=== PATIENT | male | born 1965 | race Caucasian/White ===

== ENCOUNTER → 2016-11-16 | Outpatient (CLI) | payer OTHER ==
--- NOTE | 2016-11-16 07:34 | US ---
EXAMINATION TYPE: US carotid duplex BILAT DATE OF EXAM: 11/16/2016 COMPARISON: NONE CLINICAL HISTORY: I65.29 ARTERY OCCLUSION. bruit EXAM MEASUREMENTS: RIGHT: Peak Systolic Velocity (PSV) cm/sec ----- Right CCA: 82.3 ----- Right ICA: 89.7 ----- Right ECA: 74.3 ICA/CCA ratio: 1.1 RIGHT: End Diastole cm/sec ----- Right CCA: 24.1 ----- Right ICA: 24.8 ----- Right ECA: 14.9 LEFT: Peak Systolic Velocity (PSV) cm/sec ----- Left CCA: 80.9 ----- Left ICA: 101.7 ----- Left ECA: 65.1 ICA/CCA ratio: 1.3 LEFT: End Diastole cm/sec ----- Left CCA: 23.7 ----- Left ICA: 31.8 ----- Left ECA: 13.6 VERTEBRALS (direction of flow): Right Vertebral: Antegrade Left Vertebral: Antegrade 1. Mild wall thickening bilaterally. 2. No elevated velocities. 3. No significant stenosis. 4. Heterogeneous hypervascular thyroid tissue ?chronic thyroiditis with multiple cystic nodules. IMPRESSION: 1. Mild intimal thickening without significant flow-limiting stenosis. 2. Heterogenous appearing thyroid. Criteria for Assigning % of Stenosis / Diameter reduction (Estimation based on the indirect measurements of the internal carotid artery velocities (ICA PSV). 1. Normal (no stenosis)=ICA PSV < 125 cm/s: ratio < 2.0: ICA EDV<40 cm/s. 2. Less than 50% stenosis=ICA PSV < 125 cm/s: ratio < 2.0: ICA EDV<40 cm/s. 3. 50 to 69% stenosis=ICA PSV of 125 to 230 cm/s: ration 2.0 ? 4.0: ICA EDV 40-100 cm/s. 4. Greater than 70% stenosis to near occlusion= ICA PSV > 230 cm/s: ratio > 4.0: ICA EDV > 100 cm/s. 5. Near occlusion= ICA PSV velocities may be low or undetectable: variable ratio and ICA EDV. 6. Total occlusion=unable to detect flow.
== END ==
LOC: RADUSWWP 06:54
PROVIDERS: ATTEND Family Medicine
DX: I65.29 Occlusion and stenosis of unspecified carotid artery (principal)
CPT/HCPCS: 93880

== ENCOUNTER → 2016-11-27 | Outpatient (CLI) | payer OTHER ==
--- NOTE | 2016-11-28 07:23 | US ---
EXAMINATION TYPE: US thyroid st tissue head/neck DATE OF EXAM: 11/27/2016 COMPARISON: NONE CLINICAL HISTORY: Nontoxic single thyroid nodule E04.1. Patient states no problems GLAND SIZE: Right Lobe: 5.7 x 2.3 x 2.0 cm Overall Parenchyma: heterogenous Left Lobe: 5.4 x 1.6 x 1.8 cm Overall Parenchyma: heterogeneous Isthmus Thickness: 0.6 cm NODULES RIGHT: # of nodules measured on right: 3 1. 1.3 X 0.4 x 1.1 cm cystic nodule at the lower pole with well-defined margins; . This nodule is wider than tall and shows no intranodular vascularity. Prior size: No previous 2. 0.9 X 0.6 x 0.8 cm solid nodule at the pole with well-defined margins; . This nodule is wider th an tall and shows no intranodular vascularity. Prior size: No previous 3. 0.7 X 0.5 x 0.7 cm isoechoic mixed nodule at the lower pole with well-defined margins; . This no dule is wider than tall and shows no intranodular vascularity. Prior size: No previous LEFT: # of nodules measured on left: 0 Multiple subcentimeter cystic areas visualized ISTHMUS: # of nodules measured in the isthmus: 0 Multiple subcentimeter cystic areas visualized Bilateral neck scanned, no evidence of lymphadenopathy. IMPRESSION: 1. Nonspecific nodularity identified throughout both thyroid lobes. 2. Thyroid glandular enlargement.
== END | disposition home or self-care (01) ==
LOC: RADUSWWP 16:06
PROVIDERS: ATTEND Family Medicine
DX: E04.2 Nontoxic multinodular goiter (principal)
CPT/HCPCS: 76536

== ENCOUNTER → 2018-01-20 | Outpatient (CLI) | payer OTHER ==
--- NOTE | 2018-01-20 17:06 | US ---
EXAMINATION TYPE: US thyroid st tissue head/neck DATE OF EXAM: 01/20/2018 COMPARISON: 11/27/2016 CLINICAL HISTORY: E04.2 MULTINODULAR GOITER. Goiter, follow up thyroid nodules GLAND SIZE: Right Lobe: 5.5 x 2.2 x 2.3 cm Overall Parenchyma: heterogenous Left Lobe: 5.0 x 1.8 x 2.3 cm Overall Parenchyma: heterogeneous Isthmus Thickness: 0.6 cm NODULES RIGHT: # of nodules measured on right: 3 1. 1.2 X 0.5 x 1.0 cm cystic nodule at the lower pole with well-defined margins; . This nodule is wider than tall and shows no intranodular vascularity. Prior size: 1.3 x 0.4 x 1.1 cm 2. 0.9 X 0.8 x 0.7 cm cystic nodule at the mid pole with well-defined margins; . This nodule is wid er than tall and shows no intranodular vascularity. Prior size: 0.9 x 0.6 x 0.8 cm 3. 0.8 X 0.5 x 0.7 cm mixed nodule at the lower pole with well-defined margins; . This nodule is wi darnell than tall and shows intranodular vascularity. Prior size: 0.7 x 0.5 x 0.7 cm LEFT: # of nodules measured on left: 0 ISTHMUS: # of nodules measured in the isthmus: 0 Bilateral neck scanned, no evidence of lymphadenopathy. Multiple subcentimeter cystic areas visualized IMPRESSION: There are numerous cysts in both thyroid lobes. No dominant thyroid mass. No adverse change compared to old exam.
[2018-01-20 17:45] LABS: T4, Free (Free Thyroxine) 1.09 ng/dL (0.78-2.19)
== END | disposition home or self-care (01) ==
LOC: RADUSWWP 16:19
PROVIDERS: ATTEND Internal Medicine Endocrinology, Diabetes & Metabolism
DX: E04.2 Nontoxic multinodular goiter (principal)
CPT/HCPCS: 76536; 84439; 84443

== ENCOUNTER → 2018-05-26 | Outpatient (CLI) | payer OTHER ==
--- NOTE | 2018-05-26 10:08 | US ---
EXAMINATION TYPE: US abdomen complete DATE OF EXAM: 05/26/2018 COMPARISON: NONE CLINICAL HISTORY: R11.2 nausea with vomiting, unspecified. Vomiting and diarrhea with greasy foods EXAM MEASUREMENTS: Liver Length: 15.2 cm Gallbladder Wall: 0.3 cm CBD: 0.4 cm Spleen: 10.7 cm Right Kidney: 10.9 x 4.8 x 4.8 cm Left Kidney: 10.6 x 6.1 x 4.7 cm Pancreas: Tail obscured by overlying bowel gas Liver: appears wnl Gallbladder: no evidence of stones Evidence for sonographic Kong's sign: no CBD: wnl Spleen: wnl Right Kidney: no evidence of hydronephrosis or mass Left Kidney: no evidence of hydronephrosis or mass Upper IVC: wnl Abd Aorta: wnl The visualized liver is homogenous. The intrahepatic portion of the IVC and proximal abdominal aorta are within normal limits. There is no evidence of cholelithiasis. Common bile duct is unremarkable . The visualized portions of the pancreas are homogenous. The spleen is unremarkable. Kidneys are symmetric and free of hydronephrosis. No renal lesions are seen. IMPRESSION: No acute finding identified to account for patient's symptoms.
== END | disposition home or self-care (01) ==
LOC: RADUSWWP 07:36
PROVIDERS: ATTEND Family Medicine
DX: R11.2 Nausea with vomiting, unspecified (principal)
CPT/HCPCS: 76700

== ENCOUNTER 2018-06-16 08:25 | Day surgery (SDC) | payer OTHER ==
[2018-06-13 08:16] VITALS: BMI 24.3
[~2018-06-16 08:25] MED LIST: LACTATED RINGERS 1,000 ML IV SCH
[2018-06-16 09:31] VITALS: TEMP 98.2
[2018-06-16] MEDS ORDERED: PROPOFOL 10 MG/ML 20 ML VIAL IV ONE (10:02)
[2018-06-16] MEDS ORDERED: LIDOCAINE 1% INJ 10MG/ML (20 ML MDV) ONE (10:02)
[2018-06-16] MEDS ORDERED: fentaNYL (PF) 50 MCG/ML 2 ML AMP ONE (10:02)
--- NOTE | 2018-06-16 10:44 | P.PCN ---
Date of Procedure: 06/16/18 Procedure(s) Performed: Procedure: Colonoscopy and biopsy and polypectomy. Preoperative diagnosis: Diarrhea. Postoperative diagnosis: 1. Sigmoid diverticulosis with no evidence of acute diverticulitis or strictures. 2. Colon and terminal ileum show no evidence of inflammatory bowel disease, biopsies obtained from the terminal ileum and right colon. 3. Diminutive polyp around the hepatic flexure biopsied. 4. Multiple other small polyps snared in the transverse colon, sigmoid and rectum. 5. No large polyps or cancer. Preparation: HalfLytely prep. Sedation: Was provided by anesthesia. Brief clinical history: The patient is a 53-year-old male who is scheduled for this evaluation because of diarrhea, mostly after he eats greasy foods, getting worse over the last 3 years or so. His brother had ulcerative colitis. There is no family history of colon cancer. This would be his first colonoscopy. Procedure: With the patient on his left lateral decubitus position and after informed consent and adequate sedation, the perianal area was inspected and it did not show any fissures or fistulas. There were no masses felt on digital rectal examination. The Olympus CFH 190L video colonoscope was then inserted in the rectum in the usual fashion and advanced to the cecum. I intubated the ileocecal valve and examined the terminal ileum. There were several diverticular orifices seen scattered in the sigmoid with no evidence of acute diverticulitis or strictures. The mucosa appeared healthy with no evidence of inflammatory bowel disease. I obtained biopsies from the terminal ileum and right colon. There was a diminutive polyp around the hepatic flexure which I biopsied and 3 other polyps in the mid transverse, sigmoid and rectum which I snared and retrieved by suctioning to the tip of the endoscope and withdrawing the endoscope and restarting the exam. No large polyps or cancer. I retroflexed the endoscope in the rectum before the endoscope was withdrawn. The patient tolerated the procedure well. Plan: The patient was reassured. Discussed dietary measures. Will await biopsy results. I am recommending repeat exam in 3 years for screening for colon cancer because of the findings of polyps today. He will follow up with you as planned and I will be happy to see in the office if his diarrhea continues.
[2018-06-16 10:49] VITALS: BP 121/78; PULSE 60; RESP 18
== END 2018-06-16 11:15 | disposition home or self-care (01) ==
LOC: ORWHC2ENDO 08:25
DX: D12.3 Benign neoplasm of transverse colon (principal); D12.5 Benign neoplasm of sigmoid colon; D12.8 Benign neoplasm of rectum; K57.30 Diverticulosis of large intestine without perforation or abscess without bleeding; I10 Essential (primary) hypertension; E78.5 Hyperlipidemia, unspecified; Z91.040 Latex allergy status; F17.210 Nicotine dependence, cigarettes, uncomplicated; Z79.899 Other long term (current) drug therapy
CPT/HCPCS: 88305; 45385; 45380; J2001; J3010; J2704

== ENCOUNTER → 2019-03-26 | Outpatient (CLI) | payer OTHER ==
[2019-03-26 12:38] LABS: Basophils % (A) 1 %; Eosinophils # (A) 0.2 k/uL (0-0.7); Eosinophils % (A) 2 %; HCT 46.9 % (39.0-53.0); HGB 15.7 gm/dL (13.0-17.5); Lymphocytes # (A) 2.1 k/uL (1.0-4.8); Lymphocytes % (A) 25 %; MCH 31.2 pg (25.0-35.0); MCHC 33.5 g/dL (31.0-37.0); Mean Platelet Volume 8.7; Monocytes # (A) 0.4 k/uL (0-1.0); Monocytes % (A) 4 %; Neutrophils # (A) 5.4 k/uL (1.3-7.7); Neutrophils % (A) 66 %; Platelet Count 155 k/uL (150-450); RBC 5.04 m/uL (4.30-5.90); RDW 12.2 % (11.5-15.5); WBC 8.2 k/uL (3.8-10.6)
[2019-03-26 13:28] LABS: Total Eosinophil Count 147 #EOS/uL (150-300)
[2019-03-26 14:30] LABS: Erythrocyte Sedimentation Rate 2 mm/hr (0-15)
[2019-03-26 18:11] LABS: Dermato. farinae IgE 0.66 kU/L
[2019-03-26 18:12] LABS: Cat Epith & Dander IgE <0.10 kU/L; Cockroach IgE 0.26 kU/L; Dog Dander IgE <0.10 kU/L
[2019-03-26 18:13] LABS: Aspergillus fumagatus IgE <0.10 kU/L; Cladosporian herbarum IgE <0.10 kU/L
[2019-03-26 18:14] LABS: Alternaria alternata IgE <0.10 kU/L; Birch IgE <0.10 kU/L; Maple (Box Elder) IgE <0.10 kU/L
[2019-03-26 18:15] LABS: Elm IgE <0.10 kU/L; Oak IgE <0.10 kU/L; Ragweed,Common IgE <0.10 kU/L
[2019-03-26 18:16] LABS: Red Top (Bentgrass) IgE <0.10 kU/L
== END | disposition home or self-care (01) ==
LOC: LABWHC1 10:32
PROVIDERS: ATTEND Internal Medicine
DX: R05 Cough (principal); T78.40XA Allergy, unspecified, initial encounter
CPT/HCPCS: 36415; 82785; 85008; 85025; 85652; 86003

== ENCOUNTER → 2023-11-29 | Outpatient (CLI) | payer BC ==
--- NOTE | 2023-11-29 16:24 | US ---
EXAMINATION TYPE: US thyroid st tissue head/neck DATE OF EXAM: 11/29/2023 COMPARISON: US thyroid 01/20/2018, 11/27/2016 CLINICAL INDICATION: Male, 58 years old with history of E04.2 THYROID NODULE; F/U GLAND SIZE: Right Lobe: 5.3 x 2.6 x 2.3 cm Overall Parenchyma: heterogeneous Left Lobe: 5.0 x 2.1 x 2.2 cm Overall Parenchyma: heterogeneous Isthmus Thickness: 0.7 cm NODULES RIGHT: # of nodules measured on right: 3 1. 1.3 X 0.6 x 1.3 cm, lower, colloid cyst Prior size: 1.2 x 0.5 x 1.0 cm 2. 1.1 X 0.9 x 0.8 cm, Colloid cyst Prior size: 0.9 x 0.8 x 0.7 cm 3. 0.8 X 0.6 x 0.7 cm, lower, solid or almost completely solid, isoechoic nodule, which is wider th an tall, with smooth margins, without echogenic foci. Prior size: 0.8 x 0.5 x 0.7 cm LEFT: # of nodules measured on left: 0 Heterogeneous, hypervascular, small sub-centimeter cysts scattered throughout. ISTHMUS: # of nodules measured in the isthmus: 0 Bilateral neck scanned, no evidence of lymphadenopathy. Heterogeneous, hypervascular thyroid with sca ttered nodules, essentially unchanged from previous. IMPRESSION: Overall unchanged ultrasound from 2018 with mildly enlarged heterogenous thyroid gland with right thy roid colloid cysts and subcentimeter right thyroid lobe nodule. Additional subcentimeter left thyroid lobe cysts. No new suspicious thyroid nodule. [facility] 11/29/2023 3:54 PM
[2023-11-29 20:53] LABS: T4, Free (Free Thyroxine) 1.35 ng/dL (0.80-1.80)
== END | disposition home or self-care (01) ==
LOC: RADUSWWP 15:34
PROVIDERS: ATTEND Internal Medicine Endocrinology, Diabetes & Metabolism
DX: E04.2 Nontoxic multinodular goiter (principal)
CPT/HCPCS: 76536; 84439; 84443